=== PATIENT | male | born 1955 | race Caucasian/White ===

== ENCOUNTER 2016-06-21 22:45 | Emergency (ER) | payer OTHER ==
[2016-06-21 22:52] VITALS: TEMP 98.4
[2016-06-21] MEDS ORDERED: ONDANSETRON 4 MG/2 ML VIAL IVP ONE (23:10)
[2016-06-21] MEDS ORDERED: NS 1,000 ML IV ONE (23:10)
--- NOTE | 2016-06-21 23:10 | EDPHY ---
HPI/HX/ROS/PE/MDM Narrative: Chief Complaint: Left flank pain HPI: 60-year-old male with no significant medical history presenting with 1 day of left-sided flank pain, nausea and vomiting. Patient states that the pain is feels the pain in his left side. It is nonradiating. It is dull. He has also had some associated nausea when the pain comes in waves. No fevers but has had some chills. Has had some loose stools. States he had some twinges of the same several days ago but is significantly worse today. Does not have a history of the same. Denies past medical history. Takes no medications on a regular basis. Is allergic to penicillin. Has had some slight nonproductive cough. Patient states that he cannot find a position of comfort. Does sometimes feel a little bit better when he gets up and moves around. At worst pain is a 9/10, currently is about a 7/10. ROS: 10 point Review of Systems is negative except as noted in the HPI. Physical exam: Gen: Awake, Alert, uncomfortable appearing HEENT: Nose: no rhinorrhea Eyes: PERRLA, EOMI Mouth: Moist mucosa Neck: Supple, no JVD Chest: nontender, lungs clear to auscultation Heart: S1, S2 normal, no murmur Abd: Soft, non-tender, no guarding Back: no CVA tenderness, no midline tenderness, mild left lower paraspinal tenderness which is not reproducing the presenting complaint. Ext: no edema, non-tender Skin: no rash Neuro: CN II-XII intact, Sensation grossly intact, Strength 5/5 in bilateral upper and lower extremities ED Course: CT scan abdomen pelvis, interpreted by Dr. Christensen: No explanation for the patient's abdominal and flank pain. Has a no evidence of kidney stone. There is no hydronephrosis. There is no inflammation. There are diverticula but no findings suggestive of diverticulitis. Remainder of the intra-abdominal structures are normal on this noncontrast study. There is a left pulmonary nodule which appears benign based on the Hounsfield units. This is possibly an AVM and will need a contrast study of the chest within the next 6 months. Clinical Course: 12:40 patient is feeling somewhat improved. Urinalysis is ketones but otherwise negative. CBC is normal. Chemistry is normal. CT scan the abdomen pelvis shows no acute intra-abdominal process. Patient's symptoms are likely musculoskeletal. Will give some Toradol now. - Data Points Laboratory Results: Laboratory Results 06/21/16 23:05 06/21/16 23:05 06/21/16 06/21/16 23:15 23:05 WBC 9.48 10^3/uL (3.80-9.50) RBC 5.23 10^6/uL (4.40-6.38) Hgb 17.0 g/dL (13.7-17.5) Hct 47.8 % (40.0-51.0) MCV 91.4 fL (81.5-99.8) MCH 32.5 pg (27.9-34.1) MCHC 35.6 g/dL (32.4-36.7) RDW 11.7 % (11.5-15.2) Plt Count 215 10^3/uL (150-400) MPV 10.9 fL (8.7-11.7) Neut % (Auto) 69.3 % (39.3-74.2) Lymph % (Auto) 23.7 % (15.0-45.0) [place] % (Auto) 5.7 % (4.5-13.0) Eos % (Auto) 0.3 L % (0.6-7.6) Baso % (Auto) 0.4 % (0.3-1.7) Nucleat RBC Rel Count 0.0 % (0.0-0.2) Absolute Neuts (auto) 6.56 H 10^3/uL (1.70-6.50) Absolute Lymphs (auto) 2.25 10^3/uL (1.00-3.00) Absolute Monos (auto) 0.54 10^3/uL (0.30-0.80) Absolute Eos (auto) 0.03 10^3/uL (0.03-0.40) Absolute Basos (auto) 0.04 10^3/uL (0.02-0.10) Absolute Nucleated RBC 0.00 10^3/uL (0-0.01) Immature Gran % 0.6 % (0.0-1.1) Immature Gran # 0.06 10^3/uL (0.00-0.10) Sodium 142 mEq/L (134-144) Potassium 4.2 mEq/L (3.5-5.2) Chloride 108 mEq/L (97-110) Carbon Dioxide 20 L mEq/l (22-31) Anion Gap 14 mEq/L (8-16) BUN 19 mg/dL (7-23) Creatinine 1.1 mg/dL (0.7-1.3) Estimated GFR > 60 Glucose 113 H mg/dL (70-100) Calcium 9.8 mg/dL (8.5-10.4) Total Bilirubin 0.8 mg/dL (0.1-1.4) Conjugated Bilirubin 0.3 mg/dL (0.0-0.5) Unconjugated Bilirubin 0.5 mg/dL (0.0-1.1) AST 30 IU/L (17-59) ALT 49 IU/L (21-72) Alkaline Phosphatase 77 IU/L (38-126) Total Protein 7.3 g/dL (6.3-8.2) Albumin 4.4 g/dL (3.5-5.0) Lipase 109.0 IU/L (23-300) Urine Color YELLOW Urine Appearance CLEAR Urine pH 7.0 (5.0-7.5) Ur Specific Institute 1.026 (1.002-1.030) Urine Protein NEGATIVE (NEGATIVE) Urine Ketones 1+ H (NEGATIVE) Urine Blood NEGATIVE (NEGATIVE) Urine Nitrate NEGATIVE (NEGATIVE) Urine Bilirubin NEGATIVE (NEGATIVE) Urine Urobilinogen NEGATIVE EU (0.2-1.0) Ur Leukocyte Esterase NEGATIVE (NEGATIVE) Urine Glucose NEGATIVE (NEGATIVE) Medications Given: Discontinued Medications Sodium Chloride (Ns) 1,000 mls @ 0 mls/hr IV ONCE ONE PRN Reason: Wide Open Stop: 06/21/16 23:11 Last Admin: 06/21/16 23:20 Dose: 1,000 mls Ketorolac Tromethamine (Toradol) 30 mg IVP EDNOW ONE Stop: 06/22/16 00:34 Last Admin: 06/22/16 00:43 Dose: 30 mg Morphine Sulfate (Morphine) 4 mg IVP ONCE ONE Stop: 06/21/16 23:11 Last Admin: 06/21/16 23:21 Dose: 4 mg Ondansetron HCl (Zofran) 4 mg IVP EDNOW ONE Stop: 06/21/16 23:11 Last Admin: 06/21/16 23:21 Dose: 4 mg General Time Seen by Provider: 06/21/16 23:02 Initial Vital Signs: Initial Vital Signs Temperature (C) 36.9 C 06/21/16 22:48 Heart Rate 60 06/21/16 22:48 Respiratory Rate 18 06/21/16 22:48 Blood Pressure 129/81 H 06/21/16 22:48 O2 Sat (%) 99 06/21/16 22:48 O2 Delivery Mode Room Air Allergies/Adverse Reactions: Penicillins Allergy (Verified 06/21/16 22:52) Home Medications: Medication Instructions Recorded ASPIRIN 06/21/16 Tums Ultra 06/21/16 Departure - Departure Disposition: Home, Routine, Self-Care Clinical Impression: Flank pain Condition: Good Instructions: Flank Pain (ED) Additional Instructions: Follow up with primary care physician in 2-3 days if not improved. Return to the emergency department with increasing nausea, vomiting, fevers, chills, worsening pain, or any other concerns. Referrals: Jere Champagne MD [Primary Care Provider] - As per Instructions
[2016-06-21 23:20] LABS: % IMMATURE GRANULYOCYTES 0.6 % (0.0-1.1); ABSOLUTE IMMATURE GRANULOCYTES 0.06 10^3/uL (0.00-0.10); ADD DIFF? NO; ADD MORPH? NO; ADD SCAN? NO; ATYPICAL LYMPHOCYTE FLAG 0 (0-99); FRAGMENT RBC FLAG 0 (0-99); HEMATOCRIT 47.8 % (40.0-51.0); LEFT SHIFT FLG 0 (0-99); LIPEMIA HEMOLYSIS FLAG 90 (0-99); MEAN CELL HEMOGLOBIN 32.5 pg (27.9-34.1); MEAN CELL HEMOGLOBIN CONCENTR. 35.6 g/dL (32.4-36.7); MEAN CELL VOLUME 91.4 fL (81.5-99.8); MEAN PLATELET VOLUME 10.9 fL (8.7-11.7); PLATELET CLUMPS FLAG 0 (0-99); PLATELET COUNT 215 10^3/uL (150-400); RED BLOOD CELL COUNT 5.23 10^6/uL (4.40-6.38); RED CELL DISTRIBUTION WIDTH 11.7 % (11.5-15.2)
[2016-06-21 23:45] LABS: COLOR YELLOW; LEUKOCYTE ESTERASE,URINE NEGATIVE (NEGATIVE); NITRITE,URINE NEGATIVE (NEGATIVE)
[2016-06-21 23:48] LABS: ALANINE AMINOTRANSFERASE 49 IU/L (21-72); ALBUMIN 4.4 g/dL (3.5-5.0); ALKALINE PHOSPHATASE 77 IU/L (38-126); ANION GAP 14 mEq/L (8-16); ASPARTATE AMINOTRANSFERASE 30 IU/L (17-59); BILIRUBIN,TOTAL 0.8 mg/dL (0.1-1.4); BILIRUBIN-CONJUGATED 0.3 mg/dL (0.0-0.5); BILIRUBIN-UNCONJUGATED 0.5 mg/dL (0.0-1.1); CALCIUM 9.8 mg/dL (8.5-10.4); CARBON DIOXIDE 20 mEq/l (22-31); CHLORIDE 108 mEq/L (97-110); CREATININE 1.1 mg/dL (0.7-1.3); GLOMERULAR FILTRATION RATE > 60; GLUCOSE 113 mg/dL (70-100); POTASSIUM 4.2 mEq/L (3.5-5.2); SODIUM 142 mEq/L (134-144); TOTAL PROTEIN 7.3 g/dL (6.3-8.2)
[2016-06-22 00:20] VITALS: PULSE 53
[2016-06-22] MEDS ORDERED: KETOROLAC 30 MG/1 ML SDV IVP ONE (00:33)
[2016-06-22 01:47] VITALS: BP 106/65; RESP 16; O2SAT 95
--- NOTE | 2016-06-22 13:19 | CT ---
CT Scan of the Abdomen and Pelvis (Without IV Contrast) Clinical Indications: Abdominal pain. Technique: No intravenous contrast was given. Multidetector helical CT imaging is performed from th e diaphragm to the symphysis pubis. Dose reduction techniques were utilized. Findings: At the left lung base, there is a 9 mm tubular nodular density with a feeding vessel. I thomson spect this is a simple pulmonary AVM versus pulmonary hamartoma. There appears to be a feeding vessel . Less likely could represent some mucous plugging. I do not see a single venous drainage outflow Mild emphysematous and cystic changes are present. The liver is normal. No calcifications are seen in the gallbladder. The pancreas and spleen are normal. The adrenal glands and kidneys are normal. Incidental cyst is noted in the lower pole of the left kidney. No obstructing stones. Small phleboli th in a tubular vein is present in the low pelvis. This is not in the ureter. The aorta tapers normal ly. No stones are found. Pelvis: The urinary bladder is unremarkable. No free fluid in the pelvis. No masses are identifie d. The appendix is visualized and normal. There is diverticulosis without diverticulitis. Impression: 1. Low dense pulmonary nodule in the left lower lobe. I suspect this may represent a pulmonary AVM. R ecommend contrast CT examination within the next 6 months for further characterization. Imaging of th e entire chest should be performed. 2. No radiographic source of the patient's abdominal pain. Critical results relayed by Dr. Christensen to Dr. Vera on June 22, 2016 at 1306 hours.
== END 2016-06-22 01:56 | disposition home or self-care (01) ==
DX: R10.9 Unspecified abdominal pain (principal)
CPT/HCPCS: 96374; J1885; J2405

== ENCOUNTER → 2016-12-31 | Outpatient (CLI) | payer OTHER ==
[~2016-12-31] MED LIST: IOPAMIDOL (ISOVUE-300) 100 ML BTL ONE
== END ==
LOC: FIMAGING 09:51
PROVIDERS: ATTEND Internal Medicine
DX: R91.1 Solitary pulmonary nodule (principal)
CPT/HCPCS: Q9967